=== PATIENT | female | born 1930 | race Caucasian/White ===

== ENCOUNTER 2017-11-15 05:41 | Inpatient (IN) | payer OTHER ==
[2017-11-12 10:51] VITALS: BMI 24.0
[2017-11-15] MEDS ORDERED: GABAPENTIN 300 MG CAPSULE (FP) PO ONE (05:51)
[2017-11-15] MEDS ORDERED: ROPIVICAINE 0.2%/MORPH PF/KETOROLAC - 51ML DISP.SYRINGE IA ONE ×3 (05:51→10:09)
[2017-11-15] MEDS ORDERED: CEFAZOLIN 2 GM/D5W 2 GM/50 ML ML IVPB ONE (05:51)
[2017-11-15] MEDS ORDERED: CELECOXIB 200 MG CAPSULE PO ONE (05:51)
[2017-11-15] MEDS ORDERED: TRANEXAMIC ACID 1000 MG/10 ML VIAL IVPUSH ONE (05:51)
[2017-11-15] MEDS ORDERED: oxyCODONE HCL 10 MG SUSTAINED ACTING TABLET PO ONE (05:51)
[2017-11-15] MEDS ORDERED: PANTOPRAZOLE 40 MG TABLET (FP) PO ONE (05:53)
[2017-11-15] MEDS ORDERED: PANTOPRAZOLE 40 MG TABLET (FP) ONE (06:06)
[2017-11-15] MEDS ORDERED: oxyCODONE HCL 10 MG SUSTAINED ACTING TABLET ONE (06:06)
[2017-11-15] MEDS ORDERED: GABAPENTIN 300 MG CAPSULE (FP) ONE (06:07)
[2017-11-15] MEDS ORDERED: CELECOXIB 200 MG CAPSULE ONE (06:07)
--- NOTE | 2017-11-15 07:18 | HP ---
Admitting History and Physical - Admission Chief Complaint: right hip osteoarthritus x years History of Present Illness: 87-year-old female presenting in regard to her right hip. Long-standing history of right hip osteoarthritis. Patient complains of pain, limited range of motion , difficulty ambulating, and difficulty with activities of daily living. Patient has failed conservative treatment measures including PO medications, activity modification, exercise program, and injections. At this point, patient would like to proceed with surgical intervention-right total hip arthroplasty MAKOplasty. History Source: Patient - Past Medical History Cardiovascular: Yes: HTN, Hyperlipdemia ...: No - Past Surgical History Additional Past Surgical History: see written history & physical. - Smoking History Smoking history: Never smoked Have you smoked in the past 12 months: No - Alcohol/Substance Use Hx Alcohol Use: No Home Medications - Allergies Allergies/Adverse Reactions: Allergies Allergy/AdvReac Type Severity Reaction Status Date / Time No Known Allergies Allergy Verified 11/15/17 06:39 - Home Medications Home Medications: Ambulatory Orders Aspirin [ASA -] 81 mg PO DAILY 11/12/17 Atorvastatin Calcium [Lipitor] 10 mg PO DAILY 11/12/17 Lisinopril 5 mg PO DAILY 11/12/17 Review of Systems - Review of Systems Musculoskeletal: reports: Decreased ROM (right hip), Joint Pain (right hip) Physical Examination Vital Signs: Vital Signs Temperature 97.8 F 11/15/17 06:40 Pulse Rate 56 L 11/15/17 06:40 Respiratory Rate 16 11/15/17 06:40 Blood Pressure 142/66 11/15/17 06:40 O2 Sat by Pulse Oximetry (%) 95 11/15/17 06:54 Constitutional: Yes: Well Nourished, No Distress Eyes: Yes: Conjunctiva Clear HENT: Yes: Atraumatic, Normocephalic Neck: Yes: Supple Cardiovascular: Yes: Regular Rate and Rhythm Respiratory: Yes: Regular ...Rectal Exam: Yes: Deferred Musculoskeletal: Yes: Joint Stiffness (right hip), Joint Swelling (right hip) Assessment/Plan 87-year-old female presenting in regard to her right hip. Long-standing history of right hip osteoarthritis. Patient complains of pain, limited range of motion , difficulty ambulating, and difficulty with activities of daily living. Patient has failed conservative treatment measures including PO medications, activity modification, exercise program, and injections. At this point, patient would like to proceed with surgical intervention-right total hip arthroplasty MAKOplasty. Pros, cons, risks, benefits and alternatives of a right total hip arthroplasty, MAKOplasty was discussed with the patient at length. Patient confirms her understanding and consents to proceed with a right total hip arthroplasty, MAKOplasty.
[2017-11-15] MEDS ORDERED: DEXAMETHASONE SOD PHOSPHATE/PF 10 MG/ML SDV ONE (07:34)
[2017-11-15] MEDS ORDERED: LIDOCAINE 1% P/F 10 MG/ML VIAL ONE (07:34)
[2017-11-15] MEDS ORDERED: MIDAZOLAM HCL 2 MG/2 ML SINGLE DOSE VIAL ONE (07:34)
[2017-11-15] MEDS ORDERED: BUPIVACAINE HCL/PF (5 MG/ML) 30 ML VIAL IJ ONE (07:35)
[2017-11-15] MEDS ORDERED: ceFAZolin SODIUM 1 GM VIAL ONE (08:14)
[2017-11-15] MEDS ORDERED: TRANEXAMIC ACID 1000 MG/10 ML VIAL ONE ×2 (08:14→10:12)
[2017-11-15] MEDS ORDERED: ONDANSETRON 4 MG/2 ML VIAL ONE (08:14)
[2017-11-15] MEDS ORDERED: DEXAMETHASONE SOD PHOSPHATE 4 MG/1 ML VIAL ONE (08:14)
[2017-11-15] MEDS ORDERED: TRANEXAMIC ACID 1000 MG/10 ML VIAL IVPB ONE ×2 (09:03→10:10)
[2017-11-15] MEDS ORDERED: VANCOMYCIN 1,000 MG VIAL (RESTRICTED TO ID ONLY) IVPB ONE ×2 (09:03→10:10)
[2017-11-15] MEDS ORDERED: PROPOFOL 20 ML ONE (10:00)
[2017-11-15] MEDS ORDERED: ePHEDrine SULFATE 50 MG/1 ML AMPULE ONE (10:12)
--- NOTE | 2017-11-15 11:00 | OP ---
Operative Note - Note: Operative Date: 11/15/17 Pre-Operative Diagnosis: right hip OA Operation: right MIKEY TISHA Post-Operative Diagnosis: Same as Pre-op Surgeon: Tramaine Phoenix Image Scientist: Nohemy Rowe Anesthesia: Spinal Estimated Blood Loss (mls): 200
[2017-11-15] MEDS ORDERED: ONDANSETRON 4 MG/2 ML VIAL IVPUSH PRN (11:04)
[2017-11-15] MEDS ORDERED: MAGNESIUM HYDROX 2400MG/30ML ORAL SUSPENSION 30 ML CUP PO PRN (11:04)
[2017-11-15] MEDS ORDERED: MAG HYDROX/AL HYDROX/SIMETH 30 ML UNIT-DOSE CUP PO PRN (11:04)
[2017-11-15] MEDS: ACETAMINOPHEN 1000 MG/100 ML VIAL (NON FORMULARY) IVPB ONE (11:06)
[2017-11-15] MEDS ORDERED: KETOROLAC TROMETHAMINE 30 MG/1 ML VIAL IVPUSH SCH (11:15)
[2017-11-15] MEDS ORDERED: LACTATED RINGERS SOLUTION 1,000 ML IV SCH (11:15)
[2017-11-15] MEDS: traMADol HCL 50 MG TABLET PO SCH ×2 (12:05→18:24)
[2017-11-15] MEDS ORDERED: oxyCODONE HCL 5 MG TABLET PO PRN ×2 (12:44)
[2017-11-15] MEDS: ACETAMINOPHEN 325 MG TABLET (FP) PO SCH (18:24)
[2017-11-15] MEDS: KETOROLAC TROMETHAMINE 15 MG/ML VIAL IVPUSH SCH (18:25)
[2017-11-15] MEDS: CEFAZOLIN 1 GM/D5W 1 GRAM/50 ML BAG IVPB SCH (18:25)
[2017-11-15] MEDS: GABAPENTIN 300 MG CAPSULE (FP) PO SCH (22:15)
[2017-11-15] MEDS: ASCORBIC ACID 500 MG TABLET (FP) PO SCH (22:15)
[2017-11-15] MEDS: SENNOSIDES/DOCUSATE COMBO (SENNA PLUS) TABLET (UD) PO SCH (22:16)
[2017-11-16] MEDS: CEFAZOLIN 1 GM/D5W 1 GRAM/50 ML BAG IVPB SCH (02:20)
[2017-11-16] MEDS: ACETAMINOPHEN 325 MG TABLET (FP) PO SCH ×5 (06:01→23:24)
[2017-11-16] MEDS: traMADol HCL 50 MG TABLET PO SCH ×5 (06:01→23:24)
[2017-11-16] MEDS: KETOROLAC TROMETHAMINE 15 MG/ML VIAL IVPUSH SCH ×2 (06:01)
[2017-11-16] MEDS: ACETAMINOPHEN 1000 MG/100 ML VIAL (NON FORMULARY) IVPB ONE (07:07)
[2017-11-16 08:26] LABS: HEMATOCRIT 32.5 % (32.4-45.2); HEMOGLOBIN 10.4 GM/dl (10.7-15.3); MCH 25.7 pg (25.7-33.7); MEAN CELL VOLUME 80.2 fl (80-96); MEAN PLT VOLUME 11.1 fl (7.5-11.1); PLATELET COUNT 133 K/MM3 (134-434); RBC 4.05 M/mm3 (3.60-5.2); RDW 13.1 % (11.6-15.6); WHITE BLOOD COUNT 10.9 K/mm3 (4.0-10.8)
[2017-11-16 08:53] LABS: ANION GAP 6 MMOL/L (8-16); BLOOD UREA NITROGEN 29 mg/dl (7-18); CALCIUM 8.5 mg/dl (8.4-10.2); CHLORIDE 98 mmol/L (98-107); CO2 26 mmol/L (22-28); CREATININE 1.1 mg/dl (0.6-1.3); GLUCOSE,RANDOM 130 mg/dl (74-106); POTASSIUM 5.2 mmol/L (3.5-5.1); SODIUM 130 mmol/L (136-145)
[2017-11-16] MEDS: PANTOPRAZOLE 40 MG TABLET (FP) PO SCH (09:56)
[2017-11-16] MEDS: LISINOPRIL 5 MG TABLET (FP) PO SCH (09:56)
[2017-11-16] MEDS: GABAPENTIN 300 MG CAPSULE (FP) PO SCH ×2 (09:56→21:10)
[2017-11-16] MEDS: ASCORBIC ACID 500 MG TABLET (FP) PO SCH ×2 (09:56→21:11)
[2017-11-16] MEDS: MULTIVITAMINS (DAILY MVI) TABLET (FP) PO SCH (09:56)
[2017-11-16] MEDS: CELECOXIB 200 MG CAPSULE PO SCH (09:56)
[2017-11-16] MEDS: ATORVASTATIN CA 10 MG TABLET (FP) PO SCH (09:56)
[2017-11-16] MEDS: APIXABAN 2.5 MG TABLET PO SCH ×2 (09:56→21:10)
[2017-11-16] MEDS: SENNOSIDES/DOCUSATE COMBO (SENNA PLUS) TABLET (UD) PO SCH ×2 (09:57→21:10)
--- NOTE | 2017-11-16 20:42 | PN ---
Progress Note (short form) - Note Progress Note: Pt seen and examined. Doing very well. AVSS Selected Entries 11/16/17 11/16/17 11/16/17 13:50 17:00 19:51 Temperature 98.2 F Pulse Rate 65 Respiratory 18 Rate Blood Pressure 110/67 O2 Sat by Pulse 94 L 94 L Oximetry (%) Laboratory Tests 11/16/17 11/16/17 07:20 07:20 WBC 10.9 H Hgb 10.4 L Hct 32.5 Plt Count 133 L Sodium 130 L Potassium 5.2 H Chloride 98 Carbon Dioxide 26 Anion Gap 6 L BUN 29 H Creatinine 1.1 Creat Clearance w eGFR 46.88 Random Glucose 130 H Calcium 8.5 Gen: NAD RLE: c/d/i, NVID A/P 87yo female POD#1 s/p R MIKEY PT/OOB D/C home in AM after PT
--- NOTE | 2017-11-16 20:49 | DS ---
Physical Examination Vital Signs: Vital Signs Temperature 98.2 F 11/16/17 17:00 Pulse Rate 65 11/16/17 17:00 Respiratory Rate 18 11/16/17 19:51 Blood Pressure 110/67 11/16/17 17:00 O2 Sat by Pulse Oximetry (%) 94 L 11/16/17 19:51 Labs: CBC, BMP 11/16/17 07:20 11/16/17 07:20 Discharge Summary Reason For Visit: ARTHRITIS/BURSITIS RIGHT HIP Current Active Problems Osteoarthritis of right hip (Acute) Procedures: Principal: right TISHA MIKEY Hospital Course: Admitted for elective surgery. Procedure performed without complications. Pt received postoperative antibiotic prophylaxis and DVT ppx. Ambulated with physical therapy. Stable for discharge home with outpatient followup. Condition: Stable - Instructions Diet, Activity, Other Instructions: Dr Phoenix - Hip Replacement Instructions Keep the Aquacel dressing on until removed by Dr. Phoenix in 10-14 days - it is antibacterial and waterproof and you can shower with it on. Call the office for a follow-up appointment with Dr. Phoenix in 10-14 days. Take ELIQUIS 2.5mg twice daily for 35 days to prevent blood clots in your legs. Stop taking your baby aspirin while you're on the Eliquis. Restart the aspirin in 35 days when you are finished with the Eliquis. Take one Pantoprazole 40mg daily for 6 weeks to protect against heartburn and ulcers. Take Cephalexin (antibiotic) 3x/day for 10 days to help prevent skin infection. Take a multivitamin, stool softener and extra Vitamin C supplement daily. For pain: *Mild pain (1-3/10): Take 1 Tramadol tablet every 4 hours as needed. Moderate pain (4-6/10): Take 1 Tramadol tablet and 1 Percocet tablet every 4 hours as needed. Severe pain (7-10/10): Take 1 Tramadol tablet and 2 Percocet tablets every 4 hours as needed. Activity: You can put as much weight on the operative leg as you want. For the first 6 weeks, all you need to do is walk around the house, go up/down stairs, and sit down/get up. After 6 weeks when everything is healed (and bone has grown into the implant) you will be sent for more intensive outpatient physical therapy. Always use a walker or cane for balance and to prevent falls. Expect to see swelling / bruising from the operative site all the way down to your toes. Wear the compression stocking on the operative side during the day to minimize how much swelling there is in your foot/ankle. Don't wear the stocking at night. You don't have to wear the stocking on the other side. Disposition: [facility]NS/HOME HEALTH CARE - Home Medications Comprehensive Discharge Medication List: Ambulatory Orders Atorvastatin Calcium [Lipitor] 10 mg PO DAILY 11/12/17 Lisinopril 5 mg PO DAILY 11/12/17 Apixaban [Eliquis -] 2.5 mg PO BID #70 tablet 11/16/17 Ascorbic Acid [Vitamin C -] 500 mg PO BID tablet 11/16/17 Cephalexin Monohydrate [Keflex -] 500 mg PO TID #30 capsule 11/16/17 Multivitamins [Multivit ([facility] Formulary)] 1 tab PO DAILY tab 11/16/17 Oxycodone HCl/Acetaminophen [Percocet 5-325 mg Tablet] 1 - 2 tab PO Q4H PRN #60 tablet MDD 10 11/16/17 Pantoprazole Sodium [Protonix -] 40 mg PO DAILY #40 tablet.ec 11/16/17 Sennosides/Docusate Sodium [Pericolace -] 2 tablet PO BID tablet 11/16/17 traMADol HCL [Ultram -] 50 mg PO Q4H PRN #42 tablet MDD 6 11/16/17
[2017-11-17] MEDS: traMADol HCL 50 MG TABLET PO SCH ×2 (06:08→14:11)
[2017-11-17] MEDS: ACETAMINOPHEN 325 MG TABLET (FP) PO SCH ×2 (06:10→14:11)
[2017-11-17 06:37] VITALS: TEMP 97.7
[2017-11-17 08:14] LABS: HEMATOCRIT 30.8 % (32.4-45.2); HEMOGLOBIN 9.6 GM/dl (10.7-15.3); MCH 25.1 pg (25.7-33.7); MCHC 31.3 g/dl (32.0-36.0); MEAN CELL VOLUME 80.3 fl (80-96); MEAN PLT VOLUME 10.6 fl (7.5-11.1); PLATELET COUNT 119 K/MM3 (134-434); RBC 3.83 M/mm3 (3.60-5.2); RDW 14.1 % (11.6-15.6); WHITE BLOOD COUNT 8.6 K/mm3 (4.0-10.8)
[2017-11-17 08:22] LABS: ANION GAP 5 MMOL/L (8-16); BLOOD UREA NITROGEN 28 mg/dl (7-18); CALCIUM 8.1 mg/dl (8.4-10.2); CHLORIDE 101 mmol/L (98-107); CO2 25 mmol/L (22-28); CREATININE 1.2 mg/dl (0.6-1.3); GLUCOSE,RANDOM 98 mg/dl (74-106); POTASSIUM 5.2 mmol/L (3.5-5.1); SODIUM 131 mmol/L (136-145)
[2017-11-17 09:40] VITALS: BP 95/50; PULSE 66
[2017-11-17] MEDS: CELECOXIB 200 MG CAPSULE PO SCH (09:41)
[2017-11-17] MEDS: PANTOPRAZOLE 40 MG TABLET (FP) PO SCH (09:41)
[2017-11-17] MEDS: APIXABAN 2.5 MG TABLET PO SCH (09:42)
[2017-11-17] MEDS: GABAPENTIN 300 MG CAPSULE (FP) PO SCH (09:42)
[2017-11-17] MEDS: ATORVASTATIN CA 10 MG TABLET (FP) PO SCH (09:42)
[2017-11-17] MEDS: MULTIVITAMINS (DAILY MVI) TABLET (FP) PO SCH (09:43)
[2017-11-17] MEDS: SENNOSIDES/DOCUSATE COMBO (SENNA PLUS) TABLET (UD) PO SCH (09:43)
[2017-11-17] MEDS: LISINOPRIL 5 MG TABLET (FP) PO SCH (09:43)
[2017-11-17] MEDS: ASCORBIC ACID 500 MG TABLET (FP) PO SCH (09:43)
--- NOTE | 2017-11-17 16:23 | PATH ---
Surgical Pathology Report Patient Name: ISELA, AGE Med. Rec. #: [id number] /Age/Gender: 1930 (Age: 87) / F Account: [id number] Location: [facility]UR[facility] Taken: 11/15/2017 Received: 11/15/2017 Reported: 11/17/2017 Physicians: Tramaine Phoenix M.D. Specimen(s) Received RIGHT FEMORAL HEAD Clinical History Arthritis/bursitis right hip Final Diagnosis FEMORAL HEAD, RIGHT, TOTAL HIP REPLACEMENT MAKOPLASTY: BONE WITH DEGENERATIVE JOINT DISEASE. 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 Comment: Although these findings are non-specific, dense lymphoplasmacytic infiltrate involving synovium with reactive synovial hyperplasia may be seen in association with rheumatoid arthritis. Correlation with clinical/radiologic and serologic findings is suggested. Electronically Signed Gisselle Ng M.D. Gross Description Received in formalin, labeled "right femoral head," is a 4.4 x 4.3 x 4.0 cm. femoral head with a 0.5 cm in length portion of femoral neck attached. The margin of resection is smooth. There is a 5 cm in greatest dimension area of eburnation present. The remaining articular surface is barone-yellow and focally granular. The underlying trabecular bone is yellow and hard. There is abundant attached soft tissue. [employer] sections are submitted in 2 cassettes as follows: 1-bone, following decalcification; 2-soft tissue. 11/16/2017 saudi11/16/2017
--- NOTE | 2017-11-23 18:17 | SPEC ---
DATE OF OPERATION: 11/15/2017 PREOPERATIVE DIAGNOSIS: Right hip osteoarthritis. POSTOPERATIVE DIAGNOSIS: Right hip osteoarthritis. PROCEDURE: Right total hip replacement with MAKOplasty robotic navigation. SURGEON: Tramaine Phoenix MD [employer] BUSINESS DEVELOPER: FELICITA Child ANESTHESIA: Spinal plus sedation. ESTIMATED BLOOD LOSS: 200 mL. COMPLICATIONS: None. DISPOSITION: The patient was transferred to the PACU in stable condition. IMPLANTS USED: Tod Accolade II, size 7 femoral component with 132-degree neck, [place] Titanium 52 mm acetabular component with 20- and 30-mm acetabular screws, MDM bipolar head ball. INDICATIONS: This is an 87-year-old female who presents to the office complaining of severe right hip pain. She was seen and examined by Dr. Phoenix, severe right hip osteoarthritis. The patient was initially treated nonoperatively with injections, medications, and physical therapy but failed conservative management and continued to have severe pain and ambulatory dysfunction. She was therefore indicated for a right total hip replacement with MAKOplasty robotic navigation. The risks, benefits, and alternatives to the procedure were explained to the patient, and her daughter in great detail and they elected to proceed with the surgery. On the day of surgery, the patient was taken to the operating room and placed on the OR table. Spinal anesthesia was administered by the anesthesiologist. The patient was then positioned in the lateral decubitus position on the table and all bony prominences were padded. An axillary roll was placed. The operative hip was then prepped and draped in the usual sterile fashion and intravenous antibiotics were given for infection prophylaxis. A surgical time-out was then performed with the team, and the patients identity, procedure, side, availability of implants, and the administration of antibiotics were confirmed. An approximately 15-cm longitudinal incision was made through the skin centered on the greater trochanter of the hip. This dissection was carried down through the subcutaneous tissues to the deep fascia. This fascia was then incised and a Cobra was placed around the inferior femoral neck. Electrocautery was used to reflect the anterior 40% of the gluteus medius and minimus starting at the musculotendinous junction and leaving a cuff for closure. This was reflected to reveal the capsule of the hip joint. An anterior capsulectomy was performed and the femoral head and neck were visualized. Grade 4 changes were noted diffusely throughout the joint. At this point, three small stab incisions were made superior to the main incision along the iliac crest. Three self-drilling Steinmann pins were then placed and the Sean pelvic array was attached. Reference points on the limb were then entered into the robotic device and the limb length deficiency, offset, and femoral neck resection level were then calculated by the software. The hip was then dislocated with traction and external rotation. An oscillating saw was used to make the femoral neck cut at the level previously templated, and the femoral head was removed. Attention was then turned to the acetabulum. Retractors were then placed around the acetabulum and the labrum was removed. An acetabular checkpoint pin and the [employer] software were used to register the contours of the acetabulum. The acetabulum was then reamed in a single stage to the preoperatively templated size using the Sean robotic arm. The appropriately sized cup was then impacted and had solid fixation as well as the preset inclination and version of 40 and 20 degrees, respectively. A polyethylene liner was then placed in the cup. Attention was then turned back to the femur, which was externally rotated for improved visualization. A femoral neck elevator was used to present the femoral neck cut, a box osteotome was used to enter the femoral canal, and a canal finder was used to go down the femoral shaft. The Sean broaches were used sequentially until the optimal scratch fit was achieved. This correlated with the preoperatively templated size. From here, several different offset head and neck configurations were tested until excellent stability and length were obtained. These measurements were quantified using the [employer] software. All trial components were then removed, the femur was copiously irrigated, and the final components were placed. Leg length and stability were checked again and found to be excellent. A 3-minute dilute Betadine lavage was performed. Following this, the wound was thoroughly irrigated with normal saline. Wound closure was started by repairing the abductor muscles with a no. 2 FiberWire stitch in a Krackow configuration passed through bone tunnels in the greater trochanter and tied over a bony bridge. This repair was then reinforced with a 0 V-Loc 180 barbed suture. Next, no. 1 Polysorb and 0 V-Loc 180 were used to close the fascia. The deep subcutaneous tissue was closed with no. 1 Polysorb sutures, and 2-0 Polysorb was used for the superficial subcutaneous tissue. The skin was closed using both 3-0 V-Loc 90 suture in a running subcuticular fashion and SwiftSet skin adhesive. The Sean array and pins were removed from the iliac crest and the stab incision sites were irrigated and closed with 4-0 Polysorb sutures and SwiftSet skin adhesive. Once this was completed, a sterile dressing was applied. The patient was then awakened and taken to the PACU in stable condition. Priya RALPH/[id number]
== END 2017-11-17 13:00 | disposition home health service (06) | DRG 470 ==
LOC: FM/S 05:41
PROVIDERS: ADMIT Student in an Organized Health Care Education/Training Program; ATTEND Student in an Organized Health Care Education/Training Program
PROC: 8E0Y0CZ Robotic Assisted Procedure of Lower Extremity, Open Approach (ICD-10-PCS; 2017-11-15)
PROC: 0SR90JZ Replacement of Right Hip Joint with Synthetic Substitute, Open Approach (ICD-10-PCS; principal; 2017-11-15 08:49)
DX: M16.11 Unilateral primary osteoarthritis, right hip (principal); I10 Essential (primary) hypertension; E78.5 Hyperlipidemia, unspecified
CPT/HCPCS: 36415; 73502-TC-RT; 80048; 85027; 88305-TC; 88311-TC; 94760; 97116-GP; 97162-GP; J0131